=== PATIENT | female | born 1970 | race Caucasian/White ===

== ENCOUNTER 2017-07-12 17:28 | Emergency (ER) | payer BC ==
[2017-07-12] MEDS ORDERED: NORMAL SALINE 1000 ML 1,000 ML IV ONE (18:54)
--- NOTE | 2017-07-12 18:55 | ER Document Report ---
ED Medical Screen (RME) - General Mode of Arrival: Ambulatory Information source: Patient TRAVEL OUTSIDE OF THE [place] IN LAST 30 DAYS: No - HPI Patient complains to provider of: Flu like symptoms Onset: Other - 4 days ago Associated Symptoms: Other - see notes above <RUPESH TRUJILLO - Last Filed: 07/12/17 20:10> <ROBERT DAUGHERTY - Last Filed: 07/12/17 21:13> - General Chief Complaint: Weakness Stated Complaint: FLU SYMPTOMS Time Seen by Provider: 07/12/17 18:41 Notes: 46 year old female with history of Lupus (being treated with chemotherapy x2 years) presents to the ED complaining of sore throat and nasal congestion that started 4 days ago. Patient worsened 3 days ago and developed generalized malaise. Patient was started on Levaquin, but worsened again yesterday. Today, the patient was seen at an [facility] with a fever of 101F. Patient additionally complains of productive cough, dry heaving, and nausea. reports that their grandson had strep 10 days ago. Patient is on Imuran and Plaquenil in addition to receiving chemo. Last chemo was 6 weeks ago because she was too sick to receive the most recent treatment. ( RUPESH TRUJILLO) - Related Data Allergies/Adverse Reactions: Sulfa (Sulfonamide Antibiotics) Allergy (Verified 07/12/17 20:20) Shortness of Breath Home Medications: Current Home Medications Azathioprine [Imuran 50 mg Tablet] 2 tab PO DAILY 07/12/17 [History] Belimumab [Benlysta] 400 mg IV [id number] 07/12/17 [History] Esomeprazole Magnesium [Nexium] 20 mg PO DAILY 07/12/17 [History] Hydroxychloroquine Sulfate [Plaquenil 200 mg Tablet] 1 tab PO DAILY 07/12/17 [ History] L.acidoph,Paracasei, B.lactis [Probiotic] 1 tab PO DAILY 07/12/17 [History] Levofloxacin [Levaquin 500 mg Tablet] 1 tab PO DAILY 07/12/17 [History] Meloxicam [Mobic] 15 mg PO DAILY 07/12/17 [History] Past Medical History - General Information source: Patient - Social History Frequency of alcohol use: Social Drug Abuse: None - Past Medical History Cardiac Medical History: Denies: Hx Coronary Artery Disease, Hx Heart Attack, Hx Hypertension Pulmonary Medical History: Reports: Hx Bronchitis Denies: Hx Asthma, Hx COPD, Hx Pneumonia Neurological Medical History: Denies: Hx Cerebrovascular Accident, Hx Seizures Renal/ Medical History: Denies: Hx Peritoneal Dialysis Malignancy Medical History: Reports: Other - Lupus Musculoskeltal Medical History: Reports Hx Arthritis - hands, knees, shoulders Past Surgical History: Reports: Hx Appendectomy, Hx Hysterectomy. Denies: Hx Pacemaker <RUPESH TRUJILLO - Last Filed: 07/12/17 20:10> Review of Systems - Review of Systems Constitutional: See HPI, Fever EENT: See HPI, Nose congestion, Throat pain Cardiovascular: No symptoms reported Respiratory: See HPI, Cough, Sputum Gastrointestinal: See HPI, Nausea, Other - dry heaving Genitourinary: No symptoms reported Female Genitourinary: No symptoms reported Musculoskeletal: No symptoms reported Skin: No symptoms reported Hematologic/Lymphatic: No symptoms reported Neurological/Psychological: No symptoms reported -: Yes All other systems reviewed and negative <RUPESH TRUJILLO - Last Filed: 07/12/17 20:10> Physical Exam - HEENT Head: Normocephalic, Atraumatic Eyes: Normal Extraocular movements intact: Yes Pupils: PERRL Sinus: Other - congestion. No: Normal Mouth/Lips: Normal Mucous membranes: Normal - Respiratory Respiratory status: No respiratory distress Breath sounds: Normal - Cardiovascular Rhythm: Regular, Tachycardia Heart sounds: Normal auscultation <RUPESH TRUJILLO - Last Filed: 07/12/17 20:10> - Vital signs Vitals: Temp Pulse Resp BP Pulse Ox 100.6 F H 116 H 18 119/76 97 07/12/17 17:34 07/12/17 17:34 07/12/17 17:34 07/12/17 17:34 07/12/17 17:34 Course - Laboratory Result Diagrams: 07/12/17 19:15 <RUPESH TRUJILLO - Last Filed: 07/12/17 20:10> - Laboratory Result Diagrams: 07/12/17 20:05 07/12/17 18:51 <ROBERT DAUGHERTY - Last Filed: 07/12/17 21:13> - Re-evaluation Re-evalutation: 07/12/17 21:13 I personally performed the services described in the documentation, reviewed and edited the documentation which was dictated to the scribe in my presence, and it accurately records my words and actions. (ROBERT DAUGHERTY) - Vital Signs Vital signs: Temp Pulse Resp BP Pulse Ox 100.6 F H 116 H 18 119/76 97 07/12/17 17:34 07/12/17 17:34 07/12/17 17:34 07/12/17 17:34 07/12/17 17:34 - Laboratory Laboratory results interpreted by me: 07/12/17 07/12/17 18:51 20:20 Total Bilirubin 1.4 H Direct Bilirubin 0.6 H C-Reactive Protein 84.0 H Urine Blood SMALL H Doctor's Discharge <RUPESH TRUJILLO - Last Filed: 07/12/17 20:10> <ROBERT DAUGHERTY - Last Filed: 07/12/17 21:13> - Discharge Referrals: CHARLY DOMINGUEZ MD [Primary Care Provider] - Follow up as needed Scribe Documentation - Scribe Written by Minnie:: Minnie Goetz, 07/12/2017 [id number] acting as scribe for :: Albert <RUPESH TRUJILLO - Last Filed: 07/12/17 20:10>
[2017-07-12] MEDS ORDERED: ONDANSETRON HCL INJ/PF 4 MG/2 ML SDV IV ONE (18:57)
[2017-07-12 19:48] LABS: ALANINE AMINOTRANSFERASE 34 U/L (9-52); ALBUMIN 4.4 g/dL (3.5-5.0); ALKALINE PHOSPHATASE 61 U/L (38-126); ANION GAP 13 (5-19); ASPARTATE AMINO TRANSFERASE 21 U/L (14-36); BILIRUBIN,DIRECT 0.6 mg/dL (0.0-0.4); BILIRUBIN,TOTAL 1.4 mg/dL (0.2-1.3); BLOOD UREA NITROGEN 7 mg/dL (7-20); CALCIUM 9.2 mg/dL (8.4-10.2); CARBON DIOXIDE 23 mmol/L (22-30); CHLORIDE 102 mmol/L (98-107); CREATININE RESULT 0.61 mg/dL (0.52-1.25); GLUCOSE 102 mg/dL (75-110); POTASSIUM 4.1 mmol/L (3.6-5.0); SODIUM 137.9 mmol/L (137-145); TOTAL PROTEIN 7.1 g/dL (6.3-8.2)
[2017-07-12] MEDS ORDERED: KETOROLAC TROMETHAMINE INJ/PF 30 MG/1 ML SDV IV ONE (20:00)
--- NOTE | 2017-07-12 20:03 | ER Document Report ---
ED General - General Chief Complaint: Weakness Stated Complaint: FLU SYMPTOMS Time Seen by Provider: 07/12/17 18:41 Mode of Arrival: Ambulatory Information source: Patient Notes: This is a 46-year-old female with a history of lupus (on Imuran, Plaquenil and monthly chemo infusion) who presents to the emergency room with nausea, vomiting , nonproductive cough, myalgias and generalized weakness for the past 4 days. Patient was started on levofloxacin on Saturday (3 days ago) for a sinus infection. TRAVEL OUTSIDE OF THE [place] IN LAST 30 DAYS: No - HPI Onset: Last week Onset/Duration: Gradual Quality of pain: Achy, Dull Severity: None Pain Level: Denies Associated symptoms: Body/muscle aches, Chills, Fever, Nausea - Cough congestion , Other Exacerbated by: Denies Relieved by: Denies Similar symptoms previously: Yes Recently seen / treated by doctor: Yes - Related Data Allergies/Adverse Reactions: Sulfa (Sulfonamide Antibiotics) Allergy (Verified 07/12/17 20:20) Shortness of Breath Home Medications: Current Home Medications Azathioprine [Imuran 50 mg Tablet] 2 tab PO DAILY 07/12/17 [History] Belimumab [Benlysta] 400 mg IV [id number] 07/12/17 [History] Esomeprazole Magnesium [Nexium] 20 mg PO DAILY 07/12/17 [History] Hydroxychloroquine Sulfate [Plaquenil 200 mg Tablet] 1 tab PO DAILY 07/12/17 [ History] L.acidoph,Paracasei, B.lactis [Probiotic] 1 tab PO DAILY 07/12/17 [History] Levofloxacin [Levaquin 500 mg Tablet] 1 tab PO DAILY 07/12/17 [History] Meloxicam [Mobic] 15 mg PO DAILY 07/12/17 [History] Past Medical History - General Information source: Patient - Social History Smoking Status: Never Smoker Cigarette use (# per day): No Chew tobacco use (# tins/day): No Frequency of alcohol use: Social Drug Abuse: None Lives with: Family Family History: None Patient has suicidal ideation: No Patient has homicidal ideation: No - Past Medical History Cardiac Medical History: Denies: Hx Coronary Artery Disease, Hx Heart Attack, Hx Hypertension Pulmonary Medical History: Reports: Hx Bronchitis Denies: Hx Asthma, Hx COPD, Hx Pneumonia Neurological Medical History: Denies: Hx Cerebrovascular Accident, Hx Seizures Renal/ Medical History: Denies: Hx Peritoneal Dialysis Malignancy Medical History: Reports: Other - Lupus Musculoskeltal Medical History: Reports Hx Arthritis - hands, knees, shoulders Psychiatric Medical History: Reports: None Traumatic Medical History: Reports: None Past Surgical History: Reports: Hx Appendectomy, Hx Hysterectomy. Denies: Hx Pacemaker Review of Systems - Review of Systems Constitutional: Chills, Fever, Weakness EENT: No symptoms reported Cardiovascular: No symptoms reported Respiratory: No symptoms reported Gastrointestinal: See HPI Genitourinary: No symptoms reported Female Genitourinary: No symptoms reported Musculoskeletal: No symptoms reported Skin: No symptoms reported Hematologic/Lymphatic: No symptoms reported Neurological/Psychological: No symptoms reported Physical Exam - Vital signs Vitals: Temp Pulse Resp BP Pulse Ox 100.6 F H 116 H 18 119/76 97 07/12/17 17:34 07/12/17 17:34 07/12/17 17:34 07/12/17 17:34 07/12/17 17:34 Notes: Physical exam: GENERAL: 46-year-old female, appears weak and ill, alert. Appears dehydrated. HEAD: Atraumatic, normocephalic. EYES: Pupils equal round and reactive to light, extraocular movements intact, sclera anicteric, conjunctiva are normal. ENT: TMs normal, nares patent, oropharynx clear without exudates. Drymucous membranes. NECK: Normal range of motion, supple without obvious mass or JVD. LUNGS: Breath sounds clear to auscultation bilaterally and equal. No wheezes rales or rhonchi. HEART: Regular rate and rhythm without murmurs, rubs or gallops. ABDOMEN: Soft, normoactive bowel sounds. No tenderness to palpation. No guarding, no rebound. No masses appreciated. EXTREMITIES: Normal range of motion, no pitting or edema. No clubbing or cyanosis. NEUROLOGICAL: Cranial nerves II through XII grossly intact. Normal speech, moving all extremities. No photophobia, neck supple, no meningismus. PSYCH: Normal mood, normal affect. SKIN: Warm, Dry, normal turgor, no rashes or lesions noted. Course - Re-evaluation Re-evalutation: 07/13/17 03:15 Patient is feeling better after IV fluids. I did offer admission, but she like to try going home. She will continue with the levofloxacin that was started by her primary care doctor. - Vital Signs Vital signs: Temp Pulse Resp BP Pulse Ox 97.8 F 116 H 16 92/64 L 98 07/13/17 02:23 07/12/17 17:34 07/13/17 02:23 07/13/17 02:23 07/13/17 02:24 - Laboratory Result Diagrams: 07/12/17 21:25 07/12/17 18:51 Laboratory results interpreted by me: 07/12/17 07/12/17 07/12/17 18:51 20:20 21:25 Hct 35.0 L Lymphocytes % 11.2 L ESR 25 H Total Bilirubin 1.4 H Direct Bilirubin 0.6 H C-Reactive Protein 84.0 H Urine Blood SMALL H - Diagnostic Test Radiology reviewed: Image reviewed, Reports reviewed - Chest x-ray shows no infiltrates or effusions Discharge - Discharge Clinical Impression: Influenza-like illness Condition: Stable Disposition: HOME, SELF-CARE Additional Instructions: Recommendations: Rest, drink fluids, take nausea medicine as needed. Follow-up with your primary care doctor: Bring a copy of today's labs with you when you go. Continue your medicines including the Levaquin Return to the emergency room for any concerns or getting worse: Worsening headache, neck pain, light bothering the eyes, not tolerating fluid. Prescriptions: Promethazine HCl [Phenergan 25 mg Tablet] 25 mg PO Q6H PRN #15 tablet PRN Reason: Referrals: CHARLY DOMINGUEZ MD [Primary Care Provider] - Follow up as needed
[2017-07-12 21:01] LABS: APPEARANCE,URINE SLIGHTLY-CLOUDY; BILIRUBIN,URINE NEGATIVE (NEGATIVE); GLUCOSE, URINE NEGATIVE (NEGATIVE); KETONES,URINE NEGATIVE (NEGATIVE); LEUKOCYTE ESTERASE,URINE NEGATIVE (NEGATIVE); NITRITE,URINE NEGATIVE (NEGATIVE); PROTEIN,URINE NEGATIVE (NEGATIVE); URINE SPECIFIC GRAVITY 1.011; UROBILINOGEN,URINE NEGATIVE mg/dL (<2.0)
--- NOTE | 2017-07-12 21:10 | RADIOLOGY REPORT (SQ) ---
EXAM DESCRIPTION: CHEST PA/LAT COMPLETED DATE/TIME: 07/12/2017 8:54 pm REASON FOR STUDY: cough congestion COMPARISON: AP chest 12/28/2009 EXAM PARAMETERS: NUMBER OF VIEWS: two views TECHNIQUE: Digital Frontal and Lateral radiographic views of the chest acquired. RADIATION DOSE: NA LIMITATIONS: none FINDINGS: LUNGS AND PLEURA: No opacities, masses or pneumothorax. No pleural effusion. MEDIASTINUM AND HILAR STRUCTURES: No masses or contour abnormalities. HEART AND VASCULAR STRUCTURES: Heart normal size. No evidence for failure. BONES: No acute findings. HARDWARE: None in the chest. OTHER: No other significant finding. IMPRESSION: NO SIGNIFICANT RADIOGRAPHIC FINDING IN THE CHEST. TECHNICAL DOCUMENTATION: JOB ID: [id number] [employer]- All Rights Reserved
[2017-07-12 21:11] LABS: BACTERIA,URINE 1+ /HPF
[2017-07-12 21:45] LABS: ABSOLUTE EOSINOPHILS # (AUTO) 0.1 10^3/uL (0.0-0.6); ABSOLUTE LYMPHOCYTES (AUTO) 1.1 10^3/uL (0.5-4.7); ABSOLUTE MONOCYTES (AUTO) 1.1 10^3/uL (0.1-1.4); ABSOLUTE NEUT (AUTO) 7.9 10^3/uL (1.7-8.2); BASOPHILS % (AUTO) 0.4 % (0-2); EOSINOPHILS % (AUTO) 0.5 % (0-6); HEMOGLOBIN 12.4 g/dL (12.0-15.5); HGB HCT DIFFERENCE 2.2; LYMPHOCYTES % (AUTO) 11.2 % (13-45); MEAN CORPUSCULAR HEMOGLOBIN 30.7 pg (27.0-33.4); MEAN CORPUSCULAR HGB CONC 35.3 g/dL (32.0-36.0); MEAN CORPUSCULAR VOLUME 87 fl (80-97); RED BLOOD COUNT 4.02 10^6/uL (3.72-5.28); RED CELL DISTRIBUTION WIDTH 12.8 % (11.5-14.0); SEGMENTED NEUTROPHILS % (AUTO) 76.9 % (42-78); WHITE BLOOD COUNT 10.3 10^3/uL (4.0-10.5)
[2017-07-12] MEDS: NORMAL SALINE 1000 ML 1,000 ML IV PRN (22:18)
[2017-07-12 22:37] LABS: ERYTHROCYTE SEDIMENTATION RATE 25 mm/hr (0-20)
[2017-07-13] MEDS ORDERED: ACETAMINOPHEN 325 MG TABLET PO ONE (01:24)
[2017-07-13] MEDS: NORMAL SALINE 1000 ML 1,000 ML IV PRN (01:30)
[2017-07-13] MEDS ORDERED: ONDANSETRON ODT 4 MG TAB (6 TAB/DSPK) PO PRN (02:09)
[2017-07-13 02:41] VITALS: BP 92/64
== END 2017-07-13 02:43 | disposition home or self-care (01) ==
LOC: ER 17:28
DX: J11.1 Influenza due to unidentified influenza virus with other respiratory manifestations (principal); J32.9 Chronic sinusitis, unspecified; R11.2 Nausea with vomiting, unspecified; R05 Cough; M79.1 Myalgia; R53.1 Weakness; R50.9 Fever, unspecified; Z88.2 Allergy status to sulfonamides; Z79.899 Other long term (current) drug therapy
CPT/HCPCS: 99285; 96361; 96374; 96375; 36415; 87040; 87070; 87880; 83605; 85025; 85652; 86140; 80053; 81001; 87804; 71020; J1885; J2405; J7030 ×2

== ENCOUNTER → 2017-12-12 | Outpatient (CLI) | payer BC ==
--- NOTE | 2017-12-17 09:45 | WOMENS IMAGING REPORT ---
EXAM DESCRIPTION: 3D SCREENING MAMMO BILAT COMPLETED DATE/TIME: 12/12/2017 11:11 am REASON FOR STUDY: SCREENING MAMMO Z12.31 ENCNTR SCREEN MAMMOGRAM FOR MALIGNANT NEOPLASM OF [place] COMPARISON: [id number] TECHNIQUE: Standard craniocaudal and mediolateral oblique views of each breast recorded using digita l acquisition and breast tomosynthesis. LIMITATIONS: None. FINDINGS: No masses, calcifications or architectural distortion. No areas of suspicion. Read with the assistance of CAD. .[facility] - R2 C[employer]ova Version 1.3 .[facility] - R2 Cenova Version 1.[address] Imaging - R2 Cenova Version 2.4 .[facility] [place] - R2 Cenova Version 2.4 .[facility] - R2 Smash [employer]cer Version 9.2 IMPRESSION: NORMAL MAMMOGRAM. BIRADS 1. BREAST DENSITY: b. There are scattered areas of fibroglandular density. BIRAD: 1 NEGATIVE RECOMMENDATION: ROUTINE SCREENING COMMENT: The patient has been notified of the results by letter per SA requirements. Additional no tification policies are in place for contacting patient with suspicious or incomplete findings. Quality ID #[id number]: The [employer] recommends an annual screening mammogram for women aged 40 years or over. This facility utilizes a reminder system to ensure that all patients receive reminder letters, and/or direct phone calls for appointments. This includes reminders for routine scr eening mammograms, diagnostic mammograms, or other Breast Imaging Interventions when appropriate. Th is patient will be placed in the appropriate reminder system. The [employer] (ACR) has developed recommendations for screening MRI of the breast s in certain patient populations, to be used in conjunction with mammography. Breast MRI surveillanc e may be appropriate for women with more than 20% lifetime risk of developing breast cancer as deter mined by genetic testing, significant family history of the disease, or history of mantle radiation f or Hodgkins Disease. ACR Practice Guidelines 2008. DBT Technology DBT is a type of tomographic mammography. With conventional mammography, overlapping breast tissue ma y make lesions difficult to detect, even with good compression. DBT uses an x-ray tube that rotates a round the breast, taking images at different angles. These images are then combined to create thin sl ices of the breast that the radiologist can view as a 3D reconstruction. The [employer] unit can perform full-field digital mammograms (2D imaging); or DBT (3D imaging); or both, in a combination mode that quickly performs both the mammogram and the tomosynthesis scan while the breast is still compressed. PQRS 6045F: Fluoroscopic imaging is not utilized for breast tomosynthesis. TECHNICAL DOCUMENTATION: FINDING NUMBER: (1) ASSESSMENT: (1) JOB ID: [id number] [employer]- All Rights Reserved Reading location - IP/workstation name: [email or web address]
== END ==
LOC: WI 10:17
PROVIDERS: ATTEND Obstetrics & Gynecology
DX: Z12.31 Encounter for screening mammogram for malignant neoplasm of breast (principal)
CPT/HCPCS: 77063; 77067

== ENCOUNTER → 2018-03-06 | Outpatient (CLI) | payer BC ==
--- NOTE | 2018-03-06 11:02 | RADIOLOGY REPORT (SQ) ---
EXAM DESCRIPTION: MRI HEAD COMBO COMPLETED DATE/TIME: 03/06/2018 9:32 am REASON FOR STUDY: H91.92 UNSPECIFIED HEARING LOSS, LEFT EA H91.92 UNSPECIFIED HEARING LOSS, LEFT EA R H93.12 TINNITUS, LEFT EAR H90.3 SENSORINEURAL HEARING LOSS, BILATERAL COMPARISON: None. TECHNIQUE: Multiplanar imaging includes non-contrasted T1, T2, FLAIR, diffusion with ADC map and pos t gadolinium contrast sequences. Additional thin slice images with and without gadolinium contrast a cquired in the posterior fossa. Images stored on PACS. CONTRAST TYPE AND DOSE: 15 mL Prohance. RENAL FUNCTION: None required. The patient is less than 50 years old. LIMITATIONS: None. FINDINGS: ANATOMY: No anomalies. Normal vascular flow voids. Pituitary fossa normal. CSF SPACES: Normal in size and contour. CEREBRUM: Sulci and gyri normal in size and contour. Normal white matter signal on FLAIR imaging. N o hemorrhage. No edema, masses or mass effect. No enhancing lesions. POSTERIOR FOSSA: No signal alteration. No hemorrhage. No edema, masses or mass effect. Internal william tory canals, cerebello-pontine angles, mastoids normal. No enhancing lesions. Detailed imaging of the 5th, 7th, and 8th nerves and [place] within normal limits. DIFFUSION IMAGING: Negative for acute or sub-acute infarction. ORBITS: No masses. Globes normal. PARANASAL SINUSES: No fluid levels. Mucosa normal. OTHER: No other significant finding. IMPRESSION: NORMAL MRI OF THE BRAIN AND POSTERIOR FOSSA WITHOUT AND WITH INTRAVENOUS GADOLINIUM CONT RAST. TECHNICAL DOCUMENTATION: JOB ID: [id number] [employer]- All Rights Reserved Reading location - IP/workstation name: [email or web address]
== END ==
LOC: RAD 08:15
PROVIDERS: ATTEND Otolaryngology
DX: H90.3 Sensorineural hearing loss, bilateral (principal); H93.12 Tinnitus, left ear
CPT/HCPCS: 70553; A9576

== ENCOUNTER → 2018-03-10 | Outpatient (CLI) | payer BC | LOC: OD 12:30 | PROVIDERS: ATTEND Otolaryngology | DX: J01.91 Acute recurrent sinusitis, unspecified (principal) | CPT/HCPCS: 36415; 82785; 86003 ==

== ENCOUNTER → 2019-01-06 | Outpatient (CLI) | payer BC ==
--- NOTE | 2019-01-06 17:12 | WOMENS IMAGING REPORT ---
EXAM DESCRIPTION: 3D SCREENING MAMMO BILAT COMPLETED DATE/TIME: 01/06/2019 9:28 am REASON FOR STUDY: Z12.31 ROUTINE 3D BILATERAL SCREENING Z12.31 ENCNTR SCREEN MAMMOGRAM FOR MALIGNAN T NEOPLASM OF [place] COMPARISON: 2011- 2017 EXAM PARAMETERS: Views: Standard craniocaudal and mediolateral oblique views of each breast recorded using digital acquisition and breast tomosynthesis. Read with the assistance of CAD. .[facility] - [employer] Psychotherapist Or Therapist Version 9.2 LIMITATIONS: None. FINDINGS: No suspicious masses, suspicious calcifications or architectural distortion. No areas of c oncern. IMPRESSION: Assessment: Negative MAMMOGRAM. BIRADS 1. BREAST DENSITY: b. There are scattered areas of fibroglandular density. BIRAD: 1 NEGATIVE RECOMMENDATION: ROUTINE SCREENING COMMENT: The patient has been notified of the results by letter per MQSA requirements. Additional no tification policies are in place for contacting patient with suspicious or incomplete findings. Quality ID #225: The [employer] recommends an annual screening mammogram for women aged 40 years or over. This facility utilizes a reminder system to ensure that all patients receive reminder letters, and/or direct phone calls for appointments. This includes reminders for routine scr eening mammograms, diagnostic mammograms, or other Breast Imaging Interventions when appropriate. Th is patient will be placed in the appropriate reminder system. TECHNICAL DOCUMENTATION: FINDING NUMBER: (1) ASSESSMENT: (1) JOB ID: [id number] [employer]- All Rights Reserved Reading location - IP/workstation name: [email or web address]
== END ==
LOC: WI 09:07
PROVIDERS: ATTEND Internal Medicine
DX: Z12.31 Encounter for screening mammogram for malignant neoplasm of breast (principal)
CPT/HCPCS: 77063; 77067

== ENCOUNTER → 2020-02-08 | Outpatient (CLI) | payer BC ==
--- NOTE | 2020-02-08 13:55 | WOMENS IMAGING REPORT ---
EXAM DESCRIPTION: BILAT SCREENING MAMMO W/CAD IMAGES COMPLETED DATE/TIME: 02/08/2020 10:49 am REASON FOR STUDY: Z12.31 ENCOUNTER FOR SCREENING MAMMOGRAM FOR MALIGNANT NEOPLASM OF BREAST Z12.31 ENCNTR SCREEN MAMMOGRAM FOR MALIGNANT NEOPLASM OF [place] COMPARISON: 2016 and subsequent EXAM PARAMETERS: Standard craniocaudal and mediolateral oblique views of each breast recorded using digital acquisition. Read with the assistance of CAD. .[facility] - [employer] Repairer Version 9.2 LIMITATIONS: None. FINDINGS: Findings present which are benign by mammographic criteria. No suspicious masses, calcifi cations or architectural distortion. Pertinent benign findings: Benign calcifications in the lateral left breast, stable. Benign mammographic findings may include one or more of the following: Smooth masses, popcorn/rim/co arse calcifications, asymmetries, post-procedure changes, and lesions with long-standing stability. IMPRESSION: BENIGN MAMMOGRAPHIC FINDINGS. BIRADS 2 BREAST DENSITY: c. The breasts are heterogeneously dense, which may obscure small masses. BIRAD: ASSESSMENT: 2 BENIGN FINDING(S) RECOMMENDATION: ROUTINE SCREENING COMMENT: The patient has been notified of the results by letter per SA requirements. Additional no tification policies are in place for contacting patient with suspicious or incomplete findings. Quality ID #225: The [employer] recommends an annual screening mammogram for women aged 40 years or over. This facility utilizes a reminder system to ensure that all patients receive reminder letters, and/or direct phone calls for appointments. This includes reminders for routine scr eening mammograms, diagnostic mammograms, or other Breast Imaging Interventions when appropriate. Th is patient will be placed in the appropriate reminder system. TECHNICAL DOCUMENTATION: FINDING NUMBER: (1) ASSESSMENT: (1) JOB ID: [id number] [employer]- All Rights Reserved Reading location - IP/workstation name: [email or web address]
== END ==
LOC: WI 10:20
PROVIDERS: ATTEND Internal Medicine
DX: Z12.31 Encounter for screening mammogram for malignant neoplasm of breast (principal)
CPT/HCPCS: 77067